=== PATIENT | male | born 1965 | race African-American/Black ===

== ENCOUNTER 2019-01-23 14:38 | Emergency (ER) | payer MEDICARE, MEDICAID ==
--- NOTE | 2019-01-23 16:01 | RADIOLOGY REPORT (SQ) ---
EXAM DESCRIPTION: CT HEAD WITHOUT COMPLETED DATE/TIME: 01/23/2019 3:50 pm REASON FOR STUDY: slurred speech, L facial droop COMPARISON: None. TECHNIQUE: Axial images acquired through the brain without intravenous contrast. Images reviewed wi th bone, brain and subdural windows. Additional sagittal and coronal reconstructions were generated. Images stored on PACS. All CT scanners at this facility use dose modulation, iterative reconstruction, and/or weight based d osing when appropriate to reduce radiation dose to as low as reasonably achievable (ALARA). [facility]: Dose Right [facility]: CareDose [facility]: Dose Right [facility]: Teradose 4D [facility]: [employer] RADIATION DOSE: CT Rad equipment meets quality standard of care and radiation dose reduction techniq ues were employed. CTDIvol: 53.2 mGy. DLP: 1070 mGy-cm.mGy. LIMITATIONS: None. FINDINGS: VENTRICLES: Prominent. CEREBRUM: No masses. No hemorrhage. No midline shift. 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 Small bilateral occipital infarcts. Areas of low density in the white matter most likely due to chronic m icro-vascular ischemic change. No evidence for acute infarction. CEREBELLUM: No masses. No hemorrhage. No alteration of density. No evidence for acute infarction. EXTRAAXIAL SPACES: Age-related involutional change. No fluid collections. No masses. ORBITS AND GLOBE: No intra- or extraconal masses. Normal contour of globe without masses. CALVARIUM: No fracture. PARANASAL SINUSES: No fluid or mucosal thickening. SOFT TISSUES: No mass or hematoma. OTHER: No other significant finding. IMPRESSION: CHRONIC CHANGES OF ATROPHY AND MICROVASCULAR ISCHEMIA. NO ACUTE PROCESS. EVIDENCE OF ACUTE STROKE: NO. TECHNICAL DOCUMENTATION: JOB ID: [id number] Quality ID # 436: Final reports with documentation of one or more dose reduction techniques (e.g., Au tomated exposure control, adjustment of the mA and/or kV according to patient size, use of iterative reconstruction technique) 2010 [employer]- All Rights Reserved Reading location - IP/workstation name: [email or web address]
--- NOTE | 2019-01-23 16:18 | RADIOLOGY REPORT (SQ) ---
EXAM DESCRIPTION: CHEST 2 VIEWS COMPLETED DATE/TIME: 01/23/2019 3:59 pm REASON FOR STUDY: CP, s/p CABG COMPARISON: None. TECHNIQUE: Frontal and lateral radiographic views of the chest acquired. NUMBER OF VIEWS: Two view. LIMITATIONS: None. FINDINGS: LUNGS AND PLEURA: No pneumothorax. Scattered areas of emphysema and chronic appearing int erstitial markings. No consolidation or pleural effusion. MEDIASTINUM AND HILAR STRUCTURES: Age-appropriate. HEART AND VASCULAR STRUCTURES: Normal size. BONES: No acute findings. HARDWARE: CABG. OTHER: No other significant finding. IMPRESSION: No consolidation or pleural effusion. TECHNICAL DOCUMENTATION: JOB ID: [id number] [place]-72 2010 [employer]- All Rights Reserved Reading location - IP/workstation name: [email or web address]
[2019-01-23 16:34] LABS: ABSOLUTE EOSINOPHILS # (AUTO) 0.6 10^3/uL (0.0-0.6); ABSOLUTE LYMPHOCYTES (AUTO) 2.2 10^3/uL (0.5-4.7); ABSOLUTE MONOCYTES (AUTO) 0.8 10^3/uL (0.1-1.4); ABSOLUTE NEUT (AUTO) 6.5 10^3/uL (1.7-8.2); BASOPHILS % (AUTO) 0.4 % (0-2); HEMOGLOBIN 16.7 g/dL (13.5-17.0); LYMPHOCYTES % (AUTO) 21.3 % (13-45); MEAN CORPUSCULAR HEMOGLOBIN 29.7 pg (27.0-33.4); MEAN CORPUSCULAR HGB CONC 33.4 g/dL (32.0-36.0); MEAN CORPUSCULAR VOLUME 89 fl (80-97); MONOCYTES % (AUTO) 7.8 % (3-13); PLATELET COUNT 198 10^3/uL (150-450); RED BLOOD COUNT 5.63 10^6/uL (4.35-5.55); RED CELL DISTRIBUTION WIDTH 14.3 % (11.5-14.0); SEGMENTED NEUTROPHILS % (AUTO) 64.5 % (42-78); TOTAL CELLS COUNTED % (AUTO) 100 %; WHITE BLOOD COUNT 10.1 10^3/uL (4.0-10.5)
[2019-01-23 16:44] LABS: ALANINE AMINOTRANSFERASE 120 U/L (21-72); ALBUMIN 4.9 g/dL (3.5-5.0); ALKALINE PHOSPHATASE 86 U/L (38-126); ANION GAP 11 (5-19); ASPARTATE AMINO TRANSFERASE 65 U/L (17-59); BILIRUBIN,DIRECT 0.3 mg/dL (0.0-0.4); BILIRUBIN,TOTAL 0.7 mg/dL (0.2-1.3); BLOOD UREA NITROGEN 19 mg/dL (7-20); CALCIUM 10.2 mg/dL (8.4-10.2); CARBON DIOXIDE 26 mmol/L (22-30); CHLORIDE 103 mmol/L (98-107); CREATINE KINASE 81 U/L (55-170); GLUCOSE 81 mg/dL (75-110); POTASSIUM 4.6 mmol/L (3.6-5.0); SODIUM 140.3 mmol/L (137-145); TOTAL PROTEIN 8.6 g/dL (6.3-8.2)
[2019-01-23 16:56] LABS: NT PRO BNP 24 pg/mL (5-900)
[2019-01-23 16:59] LABS: TROPONIN I < 0.012 ng/mL
[2019-01-23 17:22] LABS: INTERNATIONAL RATION (INR) 0.97; PARTIAL THROMBOPLASTIN TIME 31.3 SEC (23.5-35.8); PROTHROMBIN TIME 13.3 SEC (11.4-15.4)
[2019-01-23] MEDS ORDERED: NITROGLYCERIN 0.4 MG/TAB 25 TAB/BOTTLE SL PRN (19:38)
[2019-01-23] MEDS ORDERED: DONEPEZIL HCL 5 MG TABLET PO ONE (19:38)
[2019-01-23] MEDS ORDERED: RANOLAZINE 500 MG TAB.SR.12H PO ONE (19:38)
[2019-01-23] MEDS ORDERED: ATORVASTATIN CALCIUM 80 MG TABLET PO ONE (19:38)
[2019-01-23] MEDS ORDERED: CYCLOBENZAPRINE HCL 10 MG TABLET PO ONE (19:38)
[2019-01-23] MEDS ORDERED: HYDROCODONE/ACETAMINOPHEN 5-325 MG TABLET PO ONE (19:41)
[2019-01-23] MEDS ORDERED: GABAPENTIN 400 MG CAPSULE PO SCH ×2 (19:45→22:00)
[2019-01-23 20:16] LABS: APPEARANCE,URINE CLEAR; BILIRUBIN,URINE NEGATIVE (NEGATIVE); COLOR,URINE YELLOW; GLUCOSE, URINE NEGATIVE (NEGATIVE); KETONES,URINE NEGATIVE (NEGATIVE); LEUKOCYTE ESTERASE,URINE NEGATIVE (NEGATIVE); NITRITE,URINE NEGATIVE (NEGATIVE); PROTEIN,URINE NEGATIVE (NEGATIVE); URINE SPECIFIC GRAVITY 1.017
[2019-01-24 00:37] VITALS: BP 105/70
--- NOTE | 2019-01-24 06:39 | EKG REPORT ---
SEVERITY:- NORMAL ECG - SINUS RHYTHM : Confirmed by: Chuy Robles MD 24-Jan-2019 06:38:43
--- NOTE | 2019-01-24 11:56 | ER Document Report ---
Entered by SHIRIN HOFFMAN SCRIBE 01/23/19 1602 Acting as scribe for:DEBBIE MARIE DO ED General - General Chief Complaint: Chest Pain Stated Complaint: CHEST PAIN Time Seen by Provider: 01/23/19 14:53 Mode of Arrival: Ambulatory Information source: Patient Notes: 53 year old male that presents to the emergency department today with complaints of chest pain for the last several days. Patient was just discharged from [facility] two days ago where he was worked up for this chest pain. Sister at bedside states that the patient has a restricted valve" that they thought would respond to medications. Sister states yesterday the patient did not eat which is not like him stating he was nauseated. Sister reports that this morning the patient was "not right" stating that when she woke up at around 10:00 his face seemed "off" as well as his speech. Sister also reports that the patient had a cardiac catheterization at [facility] prior to his non-STEMI which was diagnosed at [facility] just recently. States that he was told he should not have another cardiac catheterization again when he was seen at [facility]. Sister is also not certain whether or not the patient has been able to fill all of his medications as an outpatient. Patient is a very poor historian. Past Medical History - General Information source: Patient - Social History Smoking Status: Current Every Day Smoker Cigarette use (# per day): Yes Chew tobacco use (# tins/day): Yes Frequency of alcohol use: Social Drug Abuse: Marijuana Lives with: Family Family History: Reviewed & Not Pertinent - Past Medical History Cardiac Medical History: Reports: Hx Coronary Artery Disease, Hx Heart Attack, Hx Hypercholesterolemia, Hx Hypertension Past Surgical History: Reports: Hx Coronary Artery Bypass Graft Review of Systems - Review of Systems Constitutional: No symptoms reported EENT: No symptoms reported Cardiovascular: See HPI, Chest pain Respiratory: No symptoms reported Gastrointestinal: See HPI, Nausea. denies: Vomiting Genitourinary: No symptoms reported Male Genitourinary: No symptoms reported Musculoskeletal: No symptoms reported Skin: No symptoms reported Hematologic/Lymphatic: No symptoms reported Neurological/Psychological: No symptoms reported -: Yes All other systems reviewed and negative Physical Exam - Vital signs Vitals: Pulse Ox 97 01/23/19 14:45 - Notes Notes: PHYSICAL EXAM GENERAL: Alert. No acute distress. HEAD: Normocephalic, atraumatic. EYES: Pupils equal, round, and reactive to light. Extraocular movements intact. Right sided exotropia corrects with confrontation. ENT: Oral mucosa moist, tongue midline. NECK: Full range of motion. Supple. Trachea midline. LUNGS: Clear to auscultation bilaterally, no wheezes, rales, or rhonchi. No respiratory distress. HEART: Regular rate and rhythm. No murmurs, gallops, or rubs. ABDOMEN: Soft, mild tenderness with palpation in the epigastrium, left upper quadrant, and left lower quadrant. Non-distended. Bowel sounds present in all 4 quadrants. No guarding, rigidity, or rebound. EXTREMITIES: Moves all 4 extremities spontaneously. No edema, radial and dorsalis pedis pulses 2/4 bilaterally. No cyanosis. NEUROLOGICAL: Left sided facial droop that corrects with smile. 5/5 muscle strength. Slurred speech, some difficulty with word finding, able to say that he is at a hospital but unable to name the hospital, state the year, or the presid ent. Later on reexamination the patient is quite alert, speech is much more clear however the patient is now angry, appears somewhat paranoid and states that he has never seen me before and that I should stop lying to him when I him that he has seen me before. On the third recheck patient remembers me, is able to tell me that he is not having any further chest pain and is agreeable to continuing his home medications and being discharged home SKIN: Warm, dry, normal turgor. Left groin does have old appearing ecchymoses, no active bleeding, no large hematoma, there is a nodule in the left groin which is mildly tender palpation, firm and not fluctuant. No erythema, no evidence of infection. Course - Re-evaluation Re-evalutation: 01/23/19 22:32 Patient came in with slurred speech and altered mental status as a possible s troke alert but also complaining of chest pain, when his sister showed up she stated that his speech was slightly more slurred than usual but approximately the same also stated that the left side of his face usually has a slight droop to it and is relatively unchanged. Patient gave me very inconsistent information as to whether or not he was having chest pain. Initially told me he was, later he told me he was not, after that he then told me again that he was having chest pain however when the nurse walked in the room he told her that he was not having chest pain and never had any chest pain. CBC is unremarkable, coags are normal, CMP shows somewhat elevated AST and ALT at 65 and 120 respe ctively, troponin negative x2. 5 hours apart, proBNP is normal at 24, urinalysis unremarkable, CT scan of the head shows no acute process, chest x-ray is negative for consolidation or pneumothorax. I did call [facility] and discussed the patient with the contact center team lead on-call. Patient was just released from [facility] on the fifth after being treated medically for a non-STEMI. She did review the records and discussed with me that a cardiac catheterization had been performed approximately 2 weeks ago Aki, they reviewed the report there and agreed that no further PCI was recommended, stated that they recommended continuing medical intervention, so long as the patient had 2- troponins here patient could be discharged to home even if there was some ongoing chest pain. 2 troponins are negative, there is no ischemic change on his EKG. She does recommend increa sing his Ranexa to thousand milligrams from the 500 mg and otherwise leaving his medications unchanged. Patient will be discharged to home. - Vital Signs Vital signs: Temp Pulse Resp BP Pulse Ox 98.1 F 17 105/70 95 01/24/19 00:00 01/23/19 19:33 01/24/19 00:02 01/24/19 00:02 - Laboratory Result Diagrams: 01/23/19 16:15 01/23/19 16:15 Laboratory results interpreted by me: 01/23/19 01/23/19 01/23/19 16:15 16:15 17:30 RBC 5.63 H RDW 14.3 H AST 65 H ALT 120 H Total Protein 8.6 H Urine Urobilinogen 4.0 H - EKG Interpretation by Me Additional EKG results interpreted by me: 01/23/19 22:33 EKG shows sinus rhythm at a rate of 68 normal axis, normal intervals, no ST segment elevations or depressions, no T wave inversions, there is nonspecific T wave flattening in aVL per my interpretation. Discharge - Discharge Clinical Impression: Chest pain at rest Condition: Stable Disposition: HOME, SELF-CARE Additional Instructions: There is no sign of heart attack today. I did discuss your case with from [facility], she is the contact center team lead. She reviewed your old records and agrees that you are not currently a candidate for further surgical intervention. Your cardiac enzymes are negative. She would like you to continue taking her medications as prescribed with the exception of the Ranexa, they would like you to increase your Ranexa to 1000 mg twice a day from the 500 mg twice a day that you are currently taking. Prescriptions: Ranolazine [Ranexa] 1,000 mg PO BID #30 [id number] I personally performed the services described in the documentation, reviewed and edited the documentation which was dictated to the scribe in my presence, and it accurately records my words and actions.
== END 2019-01-24 00:40 | disposition home or self-care (01) ==
LOC: ER 14:38
DX: R07.9 Chest pain, unspecified (principal); R11.0 Nausea; F17.210 Nicotine dependence, cigarettes, uncomplicated; I25.10 Atherosclerotic heart disease of native coronary artery without angina pectoris; I10 Essential (primary) hypertension
CPT/HCPCS: 93005; 99285; 36415; 82553; 82550; 85025; 85610; 85730; 80053; 81001; 84484; 83880; 71046; 70450; 93010; A9270 ×6